=== PATIENT | female | born 1995 | race Two or more races ===

== ENCOUNTER 2017-01-01 17:25 | Emergency (ER) | payer MEDICAID ==
[~2017-01-01] VITALS: Ht 154.9 cm; Wt 49.9 kg
[2017-01-02 02:57] VITALS: BP 122/70
== END 2017-01-02 03:31 | disposition home or self-care (01) ==
LOC: ER 17:31
DX: S16.1XXA Strain of muscle, fascia and tendon at neck level, initial encounter (principal); S39.012A Strain of muscle, fascia and tendon of lower back, initial encounter; S00.03XA Contusion of scalp, initial encounter; V49.9XXA Car occupant (driver) (passenger) injured in unspecified traffic accident, initial encounter; Y93.89 Activity, other specified; Y99.8 Other external cause status; Y92.488 Other paved roadways as the place of occurrence of the external cause
CPT/HCPCS: 70450; 72125; 72131